=== PATIENT | female | born 1985 | race Caucasian/White ===

== ENCOUNTER 2025-01-17 13:18 | Emergency (ER) | payer BC ==
[2025-01-17] MEDS ORDERED: diphenhydrAMINE 50 MG/ML VIAL ONE (14:34)
[2025-01-17] MEDS ORDERED: Metoclopramide HCl 10 MG (2 mL) VIAL ONE (14:35)
[2025-01-17] MEDS ORDERED: Ketorolac Tromethamine 30 MG (1 mL) VIAL ONE (15:39)
== END 2025-01-17 16:32 | disposition home or self-care (01) ==
LOC: CSHERS 13:18
DX: R51.9 Headache, unspecified (principal); G93.5 Compression of brain
CPT/HCPCS: 70450; 72125; 96374; 96375; J1200; J1885; J2765